=== PATIENT | male | born 2005 | race Caucasian/White ===

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

== ENCOUNTER → 2025-03-23 | Outpatient (CLI) | payer OTHER, SELFPAY ==
--- NOTE | 2025-03-23 10:22 | US_ITS ---
PROCEDURE: ABDOMEN COMPLETE 03/23/2025 REASON FOR EXAM: ELEVATED BILIRUBIN TECHNIQUE: Procedure Code: USABDC Modality: US Procedure: ABDOMEN COMPLETE COMPARISON: None. FINDINGS: Liver: Diffusely echogenic suggesting fatty infiltration. The liver measures 18.4 cm in vertical dimension in the midclavicular line. There is hepatopetal flow demonstrated in the portal venous system. Gallbladder: No stones, sludge, wall thickening or tenderness. Common bile duct: 4 mm. Pancreas: Visualized portions are sonographically unremarkable. Kidneys: The right kidney measures 12.0 x 5.9 x 5.6 cm with a 12 mm in thickness cortex. The left kidney measures 10.7 x 5.7 x 4.9 cm with a 12 mm in thickness cortex. Renal parenchymal thicknesses and echotextures are preserved. No hydronephrosis. Spleen: There is mild splenomegaly with the spleen measuring 14.4 cm in pole to pole length. Aorta: Visualized abdominal aorta is of normal size. IVC: Visualized inferior vena cava is unremarkable. Peritoneal Findings: No ascites identified. US/Abdomen Complete IMPRESSION: 1. Enlarged fatty liver. 2. Mild splenomegaly. Reading Location: [id number]
--- OUTSIDE RECORDS SUMMARY | 2025-03-23 10:23 | XMS RPT_ITS | CCD ---
Author Organization [facility] Care Team Providers Care House Rn Name Role Phone Kenneth Corley MD Primary Care Provider 1( [phone] REFERRED, SELF Referring Unavailable JUAN LUIS MCKEON Attending Unavailable KENNETH CORLEY Primary Care Unavailable KENNETH CORLEY Attending Unavailable KENNETH CORLEY Primary Care Unavailable REFERRED, SELF Referring Unavailable BALTIC, WALTER Referring Unavailable WALTER PHILLIPS Attending Unavailable Kenneth Corley Primary Care Unavailable Medications Current Medications Medication Drug Class(es) Dates Sig (Normalized) Sig (Original) naproxen 500 mg oral tablet (1 source) Nonsteroidal Anti-inflammatory Drug Start: 06-10-2020 take 1 tablet by mouth every twelve hours as needed naproxen (NAPROSYN) 500 mg tablet Take 1 tablet by mouth twice daily as needed (for pain). Take with food 14 tablet 06/10/2020 Active Problems Problem Classification Problem Date Documented Date Episodic/Chronic Administrative/social admission (5 sources) Special examination status; Translations: [Encounter for examination for participation in sport] 02-13-2018 Episodic Other connective tissue disease (5 sources) Swelling of left foot; Translations: [Other specified soft tissue disorders] 01-13-2022 Episodic Other liver diseases (1 source) Unspecified jaundice; Translations: [Unspecified jaundice] Onset: 03-15-2025 Episodic Other liver diseases (1 source) Abnormal levels of other serum enzymes; Translations: [Abnormal levels of other serum enzymes] Onset: 03-15-2025 Episodic Sprains and strains (7 sources) Strain of tendon of foot and ankle; Translations: [Strain of unspecified muscle and tendon at ankle and foot level, left foot, initial encounter] Onset: 05-26-2020 01-13-2022 Episodic Results Test Name Value Interpretation Reference Range Facility COMPREHENSIVE METABOLIC PANE Angel 03-08-2025 Albumin [Mass/Vol] 4.9 g/dL Normal 3.5-5.0 [facility] Comment on above: Order Comment: Relea se to patient->Automatic Result Comment: Veri fied By: [id number] ALP [Catalytic activity/Vol] 64 U/L Normal 40-129 [facility] Comment on above: Order Comment: Relea se to patient->Automatic Result Comment: Veri fied By: [id number] ALT [Catalytic activity/Vol] 63 U/L High <=46 [facility] Comment on above: Order Comment: Relea se to patient->Automatic Result Comment: Veri fied By: [id number] AST [Catalytic activity/Vol] 39 U/L High <=37 [facility] Comment on above: Order Comment: Relea se to patient->Automatic Result Comment: Veri fied By: [id number] BILI,TOTAL 2.0 mg/dL High <=1.0 [facility] Comment on above: Order Comment: Relea se to patient->Automatic Result Comment: Veri fied By: [id number] Calcium [Mass/Vol] 10.0 mg/dL Normal 7.6-11.0 [facility] Comment on above: Order Comment: Relea se to patient->Automatic Result Comment: Veri fied By: [id number] Chloride [Moles/Vol] 104 mmol/L Normal 96-108 [facility] Comment on above: Order Comment: Relea se to patient->Automatic Result Comment: Veri fied By: [id number] CO2 [Moles/Vol] 21.6 mmol/L Low 22.0-29.0 [facility] Comment on above: Order Comment: Relea se to patient->Automatic Result Comment: Veri fied By: [id number] Creatinine [Mass/Vol] 0.79 mg/dL Normal 0.70-1.20 [facility] Comment on above: Order Comment: Relea se to patient->Automatic Result Comment: Veri fied By: [id number] GFR/1.73 sq M.predicted among non-blacks MDRD (S/P/Bld) [Vol rate/Area] mL/min/{1.73_m2} Normal >=60 [facility] Comment on above: Order Comment: Relea se to patient->Automatic Glucose [Mass/Vol] 91 mg/dL Normal 70-99 [facility] Comment on above: Order Comment: Relea se to patient->Automatic Result Comment: Yariel mata for Diagnosis of Diabetes: Fasting Specimen (no caloric intake for at least 8 hours): <100 mg/dL Normal 100-125 mg/dL Increased risk for Diabetes >125 mg/dL Diagnostic for Diabetes Random Glucose (any time of day without regard to last meal): > or = 200 mg/dL plus Classic Symptoms of Diabetes Verified By: [id number] Potassium [Moles/Vol] 4.3 mmol/L Normal 3.3-5.1 [facility] Comment on above: Order Comment: Relea se to patient->Automatic Result Comment: Veri fied By: [id number] Protein [Mass/Vol] 7.6 g/dL Normal 5.9-8.4 [facility] Comment on above: Order Comment: Relea se to patient->Automatic Result Comment: Veri fied By: [id number] Sodium [Moles/Vol] 140 mmol/L Normal 133-145 [facility] Comment on above: Order Comment: Relea se to patient->Automatic Result Comment: Veri fied By: [id number] Urea nitrogen [Mass/Vol] 8 mg/dL Normal 4-19 [facility] Comment on above: Order Comment: Relea se to patient->Automatic Result Comment: Veri fied By: [id number] HEMOGLOBIN A1Con 03-08-2025 HbA1c (Bld) [Mass fraction] 5.0 % Normal <=5.6 [facility] Comment on above: Order Comment: Relea se to patient->Automatic Result Comment: Refe rence Interval: <5.7% 5.7-6.4% Prediabetes > or = 6.5% Diabetes Targets for diabetes management: Type I <7.5% Type II <7.0% LIPID PANELon 03-08-2025 Cholesterol [Mass/Vol] 136 mg/dL Normal <=169 [facility] Comment on above: Order Comment: Relea se to patient->Automatic Result Comment: Acce ptable (mg/dL): <170 Borderline-High (mg/dL): 170-199 High (mg/dL): > or = 200 Reference: Recommendations of the [place] [employer] (Pediatrics, Jun 2011, 128 (Supplement 5) Z551-L066; DOI: 10.1542/peds.2008-7C). Verified By: [id number] Cholesterol in LDL [Mass/Vol] 68 mg/dL Normal <=109 [facility] Comment on above: Order Comment: Relea se to patient->Automatic Result Comment: Veri fied By: [id number] HDL Chol 51 MG/DL Normal [facility] Comment on above: Order Comment: Relea se to patient->Automatic Result Comment: Low (mg/dL): <40 Borderline-Low (mg/dL): 40-45 Acceptable (mg/dL): >45 Verified By: [id number] Non-HDL Cholesterol 85 mg/dL Normal <=119 [facility] Comment on above: Order Comment: Relea se to patient->Automatic Result Comment: Veri fied By: [id number] Triglyceride [Mass/Vol] 84 mg/dL Normal <=89 [facility] Comment on above: Order Comment: Relea se to patient->Automatic Result Comment: Acce ptable (mg/dL): <90 Borderline-High (mg/dL): 90-129 High (mg/dL): > or = 130 Verified By: [id number] Progress Noteon 03-08-2025 [employer] Authentication Interface Message Text Kamryn Antunez is a 19 y.o. male patient. PHQ9 Assessment With Score Performed by: Juan Luis Mckeon MD Authorized by: Juan Luis Mckeon MD PHQ-9 See PHQ9 Flowsheet Feeling down, depressed, irritable or hopeless: (Patient-Rptd) Not at all Little interest or pleasure in doing things: (Patient-Rptd) Not at all Trouble falling or staying sleep, or sleeping too much: (Patient-Rptd) Not at all Poor appetite, weight loss, or overeating: (Patient-Rptd) Not at all Feeling tired or having little energy: (Patient-Rptd) Not at all Feeling bad about yourself - or feeling that you are a failure, or have let yourself or your family down: (Patient-Rptd) Not at all Trouble concentrating on things, like school work, reading or watching TV: (Patient-Rptd) Not at all Moving or speaking so slowly that other people could have noticed. Or the opposite - being so fidgety or restless that you were moving around a lot more than usual: (Patient-Rptd) Not at all Thoughts that you would be better off , or of hurting yourself in some way: (Patient-Rptd) Not at all In the past year have you felt depressed or sad most days, even if you felt OK sometimes?: (Patient-Rptd) No If you are experiencing any of the problems on this form, how difficult have these problems made it for you to do your work, take care of things at home or get along with other people?: (Patient-Rptd) Not difficult at all Has there been a time in the past month when you have had serious thoughts about ending your life?: (Patient-Rptd) No Have you ever, in your whole life, tried to kill yourself or made a suicide attempt?: (Patient-Rptd) No PHQ-9 Total Score: (Patient-Rptd) 0 Health Risk Assessment - CRAFFT Authorized by: Juan Luis Mckeon MD CRAFFT Results: 1. Drink more than a few sips of beer, wine, or any drink containing alcohol? Put 0 if none.: (Patient-Rptd) 0 2. Use any marijuana (cannabis, weed, oil, wax, or hash by smoking, vaping, dabbing, or in edibles) or synthetic marijuana (like K2, or Spice)? Put 0 if none.: (Patient-Rptd) 0 3. Use anything else to get high (like other illegal drugs, pills, prescription or ssjj-kmi-[id number] medications, and things that you sniff, thomas, vape, or inject)? Put 0 if none.: (Patient-Rptd) 0 4. Use a vaping device* containing nicotine and/or flavors, or use any tobacco products^? Put 0 if none.: (Patient-Rptd) 0 5. Have you ever ridden in a CAR driven by someone (including yourself) who was high or had been using alcohol or drugs?: (Patient-Rptd) No Total Score: : (Patient-Rptd) 0 Electronically signed by: Juan Luis Mckeon MD Intermediate [facility] [employer] Authentication Interface Message Text Patient ID: Kamryn Antunez is a 19 y.o. male. His chief complaint(s) include: 19 YEAR WELL CHILD Assessment 1. Routine general medical examination at a health care facility 2. Abnormal weight gain 3. Dyslexia, developmental 4. Dysgraphia Plan Kamryn was seen today for 19 year well child. Diagnoses and associated orders for this visit: Routine general medical examination at a health care facility - PHQ9 Assessment With Score - Health Risk Assessment - CRAFFT Abnormal weight gain - Venipuncture - Hemoglobin A1c - Lipid panel - Comprehensive metabolic panel ([facility]inic [facility]) Dyslexia, developmental Dysgraphia Learning disabilities (dyslexia and dysgraphia) with associated academic accommodations Kamryn has managed dyslexia and dysgraphia with academic accommodations since age [age], continuing into college with extended time, small group testing, read aloud, one-on-one tutoring, lecture recording, and audiobooks. He seeks a single dorm room to aid concentration and reduce anxiety. Reviewed and complete accommodation paperwork for a single dorm room. Scanned and returned supporting documents through [employer]. Return in about 1 year (around 03/08/2026) for well check. Safety and development were discussed. Growth charts reviewed. Counseled on healthy eating habits and physical activity recommendations. Fasting obesity screening labs obtained today; review of 2021 labs showed elevated AST, elevated bilirubin. Subjective History of Present Illness Kamryn Antunez is a 19 year old male with anxiety, inattention, dyslexia, and dysgraphia who presents for a well visit and to obtain documentation for a single dorm room accommodation at [facility]. He is accompanied by his mother. He reports that he is seeking documentation to support his request for a single dorm room at college due to difficulties concentrating with a roommate present. He reports that having a roommate increases his anxiety and makes it harder for him to focus on his studies, especially since he had more individualized support in high school. He has a history of anxiety, dyslexia, and dysgraphia, and has been on an Individualized Education Program (IEP) since age [age]. In high school, he received accommodations such as one-on-one tutoring, tests read aloud, and a quiet environment, which helped manage his symptoms. At college, he continues to receive accommodations including extended time, small group testing, and access to audiobooks, recorded lectures etc. He experiences anxiety symptoms such as panic and difficulty sleeping, particularly related to academic performance and test preparation. These symptoms were particularly pronounced in his anatomy class last year, which he struggled with due to the heavy coursework and memorization required. He is currently not on any medication for anxiety or attention issues and has not engaged in behavioral therapy. His social history includes going into his sophomore year at [employer], where he is considering joining a fraternity and plans to become more involved on campus. He reports a poor diet at college, often skipping breakfast and having irregular meal times, which he attributes to his class schedule. He acknowledges consuming larger portions and snacking more frequently. He drinks water, juice, pop. No current symptoms of increased thirst, increased urination, or gastrointestinal issues. He is accompanied by his mother. Independent history obtained from mother. 19 YEAR WELL CHILD Home: Kamryn lives apart from family (in the dorms at college, home over the summer). Eating: Kamryn does not eat regular meals including fruits and vegetables and does not drink non-sweetened liquids. Activities & Sports: Kamryn has friends. Kamryn performs less than 1 hour of physical activity daily. Drugs: Kamryn does not use tobacco, does not use drugs, does not use alcohol and does not vape. Safety: Kamryn has a violence free home, has peer relationships free from violence and uses seat belt. Kamryn does not use phone/text while driving and has no safety risk identified. Sex: The patient has never had a sexual partner. The patient is interested in females. Suicidality: Kamryn has no mental health risk identified. (worries about exams, but not involving other daily activities). Output Urine and Stool Pattern: Urine and Stool Pattern: Normal stool pattern, normal urine pattern. Sleep Sleeping Difficulty: no difficulty sleeping Hours of sleep at a time: 9 Teen Anticipatory Guidance The following anticipatory guidance was reviewed during the visit: Nutrition: limit junk food/fast food and soft drinks. Safety: home safety and date violence. Social: avoid or limit screen time. Health: age appropriate dental care, age appropriate sleep habits, self testicular exam, don't use tobacco/ alcohol/ drugs/ diet pills/ inhalants, puberty/sexual development/c (more content not included)... Normal [facility] Progress Noteon 01-23-2025 [employer]uler Authentication Interface Message Text Patient ID: Kamryn Antunez is a 19 y.o. male. His chief complaint(s) include: Ear Pain Assessment 1. Left acute suppurative otitis media Plan Kamryn was seen today for ear pain. Diagnoses and associated orders for this visit: Left acute suppurative otitis media - amoxicillin (AMOXIL) 875 MG tablet; Take 1 Tablet (875 mg) by mouth 2 times daily for 5 days Follow Up Return for Well Visit and as needed. Left ear infection Likely secondary to congestion from a cold virus causing pressure and ringing. - Prescribed amoxicillin to address infection and alleviate symptoms. Acute sinusitis Possible acute sinusitis suggested by congestion and cough, may contribute to ear infection. - Discussed that congestion and cough may persist for another week Subjective History of Present Illness The patient presents with headache, ear ringing, and sore throat. Headache and ringing in the left ear have been present since or Tuesday, with symptoms worsening over time. Has congestion and pressure behind nose and eyes. A sore throat began today. There is a slight cough, but no respiratory distress. Sudafed has been taken with some symptom relief. He is unaccompanied. Primary Care Review of Systems Objective Vital Signs 01/23/25 1331 Temp: 36.1 C (97 F) TempSrc: Temporal Weight: (!) 111.8 kg Height: 182.2 cm Body mass index is 33.68 kg/m . Physical Exam Constitutional: He appears well. He is active. No distress. HENT: Head: Atraumatic. Ears: Right Ear: Tympanic membrane normal. Left Ear: Tympanic membrane is erythematous and bulging. A purulent effusion is present. Nose: No nasal discharge. Mouth/Throat: Mucous membranes are moist. No pharynx erythema. Cardiovascular: Normal rate and regular rhythm. Heart murmur not heard. Pulmonary/Chest: Effort normal and breath sounds normal. There is normal air entry. He has no wheezes. He has no rales. Neurological: He is alert. Normal [facility] Basophil percentageon 2021 Bilirubin [Mass/Vol] 2.60 mg/dL 0.20-1.00 [facility] Work Phone: Comment on above: For patients on eltr ombopag therapy, use of Dimension [place] TBIL is not recommended. Chloride [Moles/Vol] 104 mmol/L 98-107 [facility] Work Phone: Cholesterol [Mass/Vol] 111 mg/dL <200 [facility] Work Phone: Comment on above: <200 mg/dL Desirable 200-240 mg/dL Borderline >240 mg/dL High Risk Glucose [Mass/Vol] 93 mg/dL 74-106 [facility] Work Phone: Potassium [Moles/Vol] 4.8 mmol/L 3.5-5.1 [facility] Work Phone: Protein [Mass/Vol] 7.9 g/dL 6.4-8.2 [facility] Work Phone: Sodium [Moles/Vol] 140 mmol/L 136-145 [facility] Work Phone: Triglyceride [Mass/Vol] 44 mg/dL <199 [facility] Work Phone: Comment on above: The drugs N-Acetylcy steine and Metamizole may falsely depress this assay.Serum Triglycerides Reference Interval Normal <150 mg/dL Borderline high 150 - 199 mg/dL High 200 - 499 mg/dL Very High > or = 500 mg/dL Laboratory - Chemistry and C hemistry - challengeon 04-03-2022 ALP [Catalytic activity/Vol] 85 U/L 52-171 [facility] Work Phone: ALT [Catalytic activity/Vol] 42 U/L 16-61 [facility] Work Phone: CO2 [Moles/Vol] 30.0 mmol/L 21.0-32.0 [facility] Work Phone: Globulin (S) [Mass/Vol] 3.7 g/dL 2.2-4.2 [facility] Work Phone: Urea nitrogen/Creatinine [Mass ratio] 8.3 mg/mg 10-20 [facility] Work Phone: No Panel Informationon 04-03 Estimated GFR (MDRD) [facility] Work Phone: Comment on above: Test not performedAf rican [place] GFR Calc Estimated GFR (MDRD) Non-Af [facility] Work Phone: Comment on above: Test not performedNo n- GFR Calc Serum or plasma albumin janusz urement (mass/volume)on 04-03-2022 Albumin [Mass/Vol] 4.2 g/dL 3.2-5.0 [facility] Work Phone: Serum or plasma albumin/glob ulin mass ratioon 04-03-2022 Albumin/Globulin [Mass ratio] 1.1 {ratio} 0.9-2.4 [facility] Work Phone: Serum or plasma calcium janusz urement (mass/volume)on 04-03-2022 Calcium [Mass/Vol] 9.7 mg/dL 8.5-10.1 [facility] Work Phone: Serum or plasma cholesterol in HDL measurement (mass/volume)on 04-03-2022 Cholesterol in HDL [Mass/Vol] 56 mg/dL >40 [facility] Work Phone: Comment on above: The drugs N-Acetylcy steine and Metamizole may falsely depress this assay. Reference Range HDL <40 mg/dL Low HDL Cholesterol HDL >or= 60 mg/dL High HDL Cholesterol Serum or plasma cholesterol in VLDL measurement (mass/volume)on 04-03-2022 Cholesterol in VLDL [Mass/Vol] 9 mg/dL 5-40 [facility] Work Phone: Serum or plasma creatinine m easurement (mass/volume)on 04-03-2022 Creatinine [Mass/Vol] 0.97 mg/dL 0.70-1.30 [facility] Work Phone: Comment on above: The validity of the calculated GFR & GFRAA in patients over 70 years has not been determined. Clinical correlation is essential. Serum or plasma low density lipoprotein (LDL) cholesterol measurement (mass/volume)on 04-03-2022 Cholesterol in LDL [Mass/Vol] 46 mg/dL 0-130 [facility] Work Phone: Serum or plasma urea nitroge n measurement (mass/volume)on 04-03-2022 Urea nitrogen [Mass/Vol] 8 mg/dL 7-18 [facility] Work Phone: Thin prep Papanicolaou smear with manual screeningon 04-03-2022 Thin prep Papanicolaou smear with manual screening 42 U/L 15-37 [facility] Work Phone: Thin prep Papanicolaou smear with manual screening 6 5-15 [facility] Work Phone: CNOVon 01-16-2021 CNOV Office Visit (SPRTST ) KAMRYN ANTUNEZ ([id number]) 5 M Date Time Provider Department 01/16/21 10:10 AM KAVITA LITTLEJOHN During your visit today, we recorded the following information about you: Kavita Littlejohn MD 01/16/2021 10:41 AM Signed DATE OF PROCEDURE:?June 11, 2020 OPERATION: 1.?Left?knee arthroscopically-catalino tamiko anterior cruciate ligament reconstruction with bone-patellar tendon-bone autograft 2. Diagnostic arthroscopy. 3. Examination under anesthesia. 4.??Left?knee medial meniscus root repair 5.??Left?knee?partial lateral meniscectomy REF: [employer] Interval history: Kamryn Antunez returns today status post left knee surgery. Chief complaint is left knee resolved pain. Doing great . Review of Systems: CV: No chest pain Pulm: No short of breath HEENT: No head ache General: no fevers, chills, nausea/vomiting, malaise Physical Examination: This is a well appearing, well nourished patient in no acute distress. Head is normocephalic and atraumatic. White sclera and pink conjunctiva. Mucous membranes are moist. Breathes easily and has normal chest wall excursion. Affect is normal. Left knee: negative susan's Range of motion: Flexion is ful, extension is full . Effusion: none +. Incisions: healed . No infection. Imaging: none Impression: Kamryn Hallmanley is a 15 year old male, who is 7 months status post left knee ACLR, MM root repair and partial lateral meniscectomy. Doing great . Plan: 1. return to clinic as necessary 2. Cleared for all activities Kavita Littlejohn MD Referring Provider: KENNETH CORLEY [[id number]] Allergies As of Date: 01/16/2021 (No Known Allergies) Date Reviewed: 01/16/2021 Reviewed by: Kayla Long Ma - Fully Assessed Reason for Visit: Post Op [174] Established Patient [175] Follow Up [171] Primary Visit Diagnosis:S/P right knee ACL reconstruction with BTB autograft, medial meniscus root repair, partial lateral meniscectomy [Z98.890] Other Visit Diagnosis:[employer] [Y93.64] Prescriptions as of 01/16/2021 - naproxen (NAPROSYN) 500 mg tablet Take 1 tablet by mouth twice daily as needed (for pain). Take with food Problem List As Of Date 01/16/2021 Noted Resolved Left anterior cruciate ligament tear [S83.512A] 05/26/2020 S/P right knee ACL reconstruction with BTB auto*06/19/2020 Encounter Status:Closed by KAVITA LITTLEJOHN on 01/16/21 [facility] CNCOon 12-12-2020 CNCO Letter Text Normal [facility] CNOVon 12-12-2020 CNOV Office Visit (SPRTST ) KAMRYN ANTNUEZ ([id number]) 5 M Date Time Provider Department 12/12/20 8:30 AM KAVITA LITTLEJOHN During your visit today, we recorded the following information about you: Edgar Tipton MD 12/14/2020 4:52 PM Signed DATE OF PROCEDURE:?June 11, 2020 OPERATION: 1.?Left?knee arthroscopically-catalino morrison anterior cruciate ligament reconstruction with bone-patellar tendon-bone autograft 2. Diagnostic arthroscopy. 3. Examination under anesthesia. 4.??Left?knee medial meniscus root repair 5.??Left?knee?partial lateral meniscectomy REF: [employer] Doing very well. No significant pain. He has been working through some jogging. Physical Examination: This is a well appearing, well nourished male in no acute distress. His head is normocephalic and atraumatic. He has white sclera and pink conjunctiva. Mucous membranes are moist. He breathes easily and has normal chest wall excursion. He has a normal affect. Negative Susan's and pivot shift on exam. Minor pain with palpation over the patellar tendon. He has full range of motion. Good quadriceps contractility. Single leg hop on the left demonstrates he is still a little stiff legged. Currently just past 6 months status post left knee ACL reconstruction medial meniscus root repair and partial lateral meniscectomy. He is ok to participate in non-game sports activities. RTC in 1 month. ALLERGIES No Known Allergies No past medical history on file. PAST SURGICAL HISTORY Procedure Laterality Date - ADENOIDECTOMY HX - EAR TUBES HX x 2 Current Outpatient Medications on File Prior to Visit Medication Sig - naproxen (NAPROSYN) 500 mg tablet Take 1 tablet by mouth twice daily as needed (for pain). Take with food (Patient not taking: Reported on 10/31/2020 ) No current facility-administered medications on file prior to visit. FAMILY HISTORY Problem Relation Age of Onset - Asthma Mother - Diabetes Father - Hypertension Father - Asthma Brother Review of Symptoms: Cardiac: No chest pain Pulmonary: No trouble breathing Constitutional: No fevers, chills GI: No current GI upset Musculoskeletal: As above MD Kavita Russell MD FAOA Orthopaedic Surgery and Sports Medicine [facility] Sports Medicine explosive man [facility] Warehouse Operations Manager, Orthopaedic Sports Medicine Fellowship [facility] Orthopaedic and Rheumatologic [place] Kavita Littlejohn MD 12/14/2020 4:52 PM Signed Attending Attestation: I have seen and evaluated this patient. I agree with the impression and plan of care as outlined in the Resident's note. Single leg hop is not fantastic. A bit stiff legged. MD PEMA Harley Orthopaedic Surgery and Sports Medicine [facility] Sports Medicine explosive man [facility] Warehouse Operations Manager, Orthopaedic Sports Medicine Fellowship [facility] Orthopaedic and Rheumatologic [place] Referring Provider: KENNETH CORLEY [[id number]] Allergies As of Date: 12/12/2020 (No Known Allergies) Date Reviewed: 12/12/2020 Reviewed by: Edgar Tipton MD - Fully Assessed Reason for Visit: Post-Op Visit [1236] Established Patient [175] Post Op [174] Primary Visit Diagnosis:S/P right knee ACL reconstruction with BTB autograft, medial meniscus root repair, partial lateral meniscectomy [Z98.890] Prescriptions as of 12/12/2020 Sig: NAPROXEN 500 MG TABLET Take 1 tablet by mouth twice * Patient not taking: Reported on 10/31/2020 Problem List As Of Date 12/12/2020 Noted Resolved Left anterior cruciate ligament tear [S83.512A] 05/26/2020 S/P right knee ACL reconstruction with BTB auto*06/19/2020 Disposition: Return in about 5 weeks (around 01/16/2021). Follow-up and Disposition History Recorded Encounter Status:Closed by KAVITA LITTLEJOHN on 12/14/20 Normal [facility] CNOVon 10-31-2020 CNOV Office Visit (SPRTST ) KAMRYN ANTUNEZ ([id number]) 5 M Date Time Provider Department 10/31/20 8:30 AM KAVITA LITTLEJOHN During your visit today, we recorded the following information about you: Kavita Littlejohn MD 10/31/2020 8:53 AM Signed DATE OF PROCEDURE:?June 11, 2020 OPERATION: 1.?Left?knee arthroscopically-catalinojunior morrison anterior cruciate ligament reconstruction with bone-patellar tendon-bone autograft 2. Diagnostic arthroscopy. 3. Examination under anesthesia. 4.??Left?knee medial meniscus root repair 5.??Left?knee?partial lateral meniscectomy REF: [employer] Doing very well. No significant pain. He has been working through some jogging. Physical Examination: This is a well appearing, well nourished male in no acute distress. His head is normocephalic and atraumatic. He has white sclera and pink conjunctiva. Mucous membranes are moist. He breathes easily and has normal chest wall excursion. He has a normal affect. Negative Susan's and pivot shift on exam. Minor pain with palpation over the patellar tendon. He has full range of motion. Good quadriceps contractility. Currently approaching 5 months status post left knee ACL reconstruction medial meniscus root repair and partial lateral meniscectomy. Doing well. We talked to him about progressing with his return to play program. He is okay to start doing some flat ground throwing and progress that to long toss and level ground pitching. ALLERGIES No Known Allergies No past medical history on file. PAST SURGICAL HISTORY Procedure Laterality Date - ADENOIDECTOMY HX - EAR TUBES HX x 2 Current Outpatient Medications on File Prior to Visit Medication Sig - naproxen (NAPROSYN) 500 mg tablet Take 1 tablet by mouth twice daily as needed (for pain). Take with food (Patient not taking: Reported on 10/31/2020 ) No current facility-administered medications on file prior to visit. FAMILY HISTORY Problem Relation Age of Onset - Asthma Mother - Diabetes Father - Hypertension Father - Asthma Brother Review of Symptoms: Cardiac: No chest pain Pulmonary: No trouble breathing Constitutional: No fevers, chills GI: No current GI upset Musculoskeletal: As above Kavita Littlejohn MD FAOA Orthopaedic Surgery and Sports Medicine [facility] Sports Medicine explosive man [facility] Warehouse Operations Manager, Orthopaedic Sports Medicine Fellowship [facility] Orthopaedic and Rheumatologic [place] Referring Provider: KENNETH CORLEY [[id number]] Allergies As of Date: 10/31/2020 (No Known Allergies) Date Reviewed: 10/31/2020 Reviewed by: Kayla Long Ma - Fully Assessed Reason for Visit: Post Op [174] Established Patient [175] Follow Up [171] Primary Visit Diagnosis:S/P right knee ACL reconstruction with BTB autograft, medial meniscus root repair, partial lateral meniscectomy [Z98.890] Prescriptions as of 10/31/2020 Sig: NAPROXEN 500 MG TABLET Take 1 tablet by mouth twice * Patient not taking: Reported on 10/31/2020 Problem List As Of Date 10/31/2020 Noted Resolved Left anterior cruciate ligament tear [S83.512A] 05/26/2020 S/P right knee ACL reconstruction with BTB auto*06/19/2020 Disposition: Return in about 6 weeks (around 12/12/2020). Follow-up and Disposition History Recorded Letter Text Encounter Status:Closed by KAVITA LITTLEJOHN MD on 10/31/20 [facility] CNCOon 09-26-2020 CNCO Letter Text [facility] CNOVon 09-26-2020 CNOV Office Visit (SPRTST ) KAMRYN ANTUNEZ ([id number]) 5 M Date Time Provider Department 09/26/20 8:30 AM KAVITA LITTLEJOHN During your visit today, we recorded the following information about you: Kavita Littlejohn MD 09/26/2020 8:41 AM Signed DATE OF PROCEDURE:?June 11, 2020 OPERATION: 1.?Left?knee arthroscopically-catalino tamiko anterior cruciate ligament reconstruction with bone-patellar tendon-bone autograft 2. Diagnostic arthroscopy. 3. Examination under anesthesia. 4.??Left?knee medial meniscus root repair 5.??Left?knee?partial lateral meniscectomy REF: [employer] Interval history: Kamryn Antunez returns today status post left knee surgery. Chief complaint is left knee resolved pain.. Doing very well. Review of Systems: CV: No chest pain Pulm: No short of breath HEENT: No head ache General: no fevers, chills, nausea/vomiting, malaise Physical Examination: This is a well appearing, well nourished patient in no acute distress. Head is normocephalic and atraumatic. White sclera and pink conjunctiva. Mucous membranes are moist. Breathes easily and has normal chest wall excursion. Affect is normal. Left knee: Excursion on Susan's but a negative endpoint. Range of motion: Flexion is symmetric, extension is symmetric. Effusion: None +. Incisions: Healed. No infection. Imaging: None Impression: Kamryn Antunez is a 15 year old male, who is 3-1/2 months status post left knee ACL reconstruction, medial meniscus root repair and partial lateral meniscectomy. Doing well. Plan: 1. Continue with physical therapy 2. Okay to discontinue the surface grinding machine hand brace for everyday use 3. Return to clinic in 6 weeks Kavita Littlejohn MD [facility] Orthopaedic Surgery and Sports Medicine [facility] Sports Medicine explosive man [facility] Warehouse Operations Manager, Orthopaedic Sports Medicine Fellowship [facility] Orthopaedic and Rheumatologic [place] Referring Provider: KENNETH CORLEY [[id number]] Allergies As of Date: 09/26/2020 (No Known Allergies) Date Reviewed: 08/28/2020 Reviewed by: Cheryl Renteria Ma - Fully Assessed Reason for Visit: Post-Op Visit [1236] Established Patient [175] Post Op [174] Primary Visit Diagnosis:S/P right knee ACL reconstruction with BTB autograft, medial meniscus root repair, partial lateral meniscectomy [Z98.890] Prescriptions as of 09/26/2020 Sig: NAPROXEN 500 MG TABLET Take 1 tablet by mouth twice * Problem List As Of Date 09/26/2020 Noted Resolved Left anterior cruciate ligament tear [S83.512A] 05/26/2020 S/P right knee ACL reconstruction with BTB auto*06/19/2020 Disposition: Return in about 6 weeks (around 11/07/2020). Follow-up and Disposition History Recorded Letter Text Encounter Status:Closed by KAVITA LITTLEJOHN MD on 09/26/20 [facility] CNCOon 08-28-2020 CNCO Letter Text [facility] CNOVon 08-28-2020 CNOV Office Visit (SPRTST ) KAMRYN ANTUNEZ ([id number]) 5 M Date Time Provider Department 08/28/20 8:30 AM KAVITA LITTLEJOHN SPRMARIA DT During your visit today, we recorded the following information about you: Kavita Littlejohn MD 08/28/2020 8:51 AM Signed DATE OF PROCEDURE:?June 11, 2020 OPERATION: 1.?Left?knee arthroscopically-catalino tamiko anterior cruciate ligament reconstruction with bone-patellar tendon-bone autograft 2. Diagnostic arthroscopy. 3. Examination under anesthesia. 4.??Left?knee medial meniscus root repair 5.??Left?knee?partial lateral meniscectomy REF: [employer] Interval history: Kamryn Antunez returns today status post left knee surgery. Chief complaint is resolved knee pain.. Doing great. Review of Systems: CV: No chest pain Pulm: No short of breath HEENT: No head ache General: no fevers, chills, nausea/vomiting, malaise Physical Examination: This is a well appearing, well nourished patient in no acute distress. Head is normocephalic and atraumatic. White sclera and pink conjunctiva. Mucous membranes are moist. Breathes easily and has normal chest wall excursion. Affect is normal. knee: solid endpoint on Susan's Range of motion: Flexion is full, extension is full . Effusion: none +. Incisions: healed . No infection. Imaging: none Impression: Kamryn Antunez is a 15 year old male, who is 3 months status post ACLR+ MM root repair + PLM. He is doing well, progresses. At this point, he is cleared to transition to Phase II on rehabilitation. Plan: 1. PT -as per miller protocol he is not ready for jogging or plyometric activities. We should hold off on that until he is at two months post surgery 2. return to clinic in 1 month By signing my name below, I, Li Day Ms, attest that this documentation has been prepared under the direction and in the presence of Dr. Littlejohn Electronically signed, Li Day Ms, Medical Student August 28, 2020 8:34 AM Referring Provider: KAVITA LITTLEJOHN [[id number]] Allergies As of Date: 08/28/2020 (No Known Allergies) Date Reviewed: 08/28/2020 Reviewed by: Cheryl Renteria Ma - Fully Assessed Reason for Visit: Post-Op Visit [1236] Established Patient [175] Post Op [174] Primary Visit Diagnosis:S/P right knee ACL reconstruction with BTB autograft, medial meniscus root repair, partial lateral meniscectomy [Z98.890] Prescriptions as of 08/28/2020 Sig: NAPROXEN 500 MG TABLET Take 1 tablet by mouth twice * Problem List As Of Date 08/28/2020 Noted Resolved Left anterior cruciate ligament tear [S83.512A] 05/26/2020 S/P right knee ACL reconstruction with BTB auto*06/19/2020 Disposition: Return in about 4 weeks (around 09/25/2020). Follow-up and Disposition History Recorded Encounter Status:Closed by KAVITA LITTLEJOHN MD on 08/28/20 Normal [facility] XR Knee - left AP and Latera angel 06-19-2020 IMPRESSION: Expected postsurgical changes of ACL reconstruction. Health Insurance Adjuster: KRISTEN Transcribe Date/Time: Jun 19 2020 2:07P Dictated by : VIVIAN ZAPATA DO This examination was interpreted and the report reviewed and electronically signed by: ANH SALINAS MD on Jun 19 2020 2:21PM [facility] DIVISION OF RADIOLOGY * * *Final Report* * * DATE OF EXAM: Jun 19 2020 2:05PM STX 5206 - XR KNEE 2V AP/LAT LT / PROCEDURE REASON: Rupture of anterior cruciate ligament of left knee, subsequent encounter * * * * Physician Interpretation * * * * EXAMINATION: XR KNEE 2V AP/LAT LT HISTORY: FOLLOW UP, SURGERY 06/11/20 Rupture of anterior cruciate ligament of left knee, subsequent encounter . TECHNIQUE: XR KNEE 2V AP/LAT LT Laterality: LEFT Number of different views (projections): 2 M: XB_1 COMPARISON: Outside left knee MRI 05/09/2020, outside left knee radiographs 04/24/2020 RESULT: Postsurgical changes of ACL reconstruction including threaded anchor in the proximal tibia and femoral Endobutton. Large joint effusion. Anterior knee soft tissue swelling and patellar tendon edema. DIVISION OF RADIOLOGY Provider, [facility] - 06/19/2020 * * *Final Report* * * DATE OF EXAM: Jun 19 2020 2:05PM STX 5206 - XR KNEE 2V AP/LAT LT / PROCEDURE REASON: Rupture of anterior cruciate ligament of left knee, subsequent encounter * * * * Physician Interpretation * * * * EXAMINATION: XR KNEE 2V AP/LAT LT HISTORY: FOLLOW UP, SURGERY 06/11/20 Rupture of anterior cruciate ligament of left knee, subsequent encounter . TECHNIQUE: XR KNEE 2V AP/LAT LT Laterality: LEFT Number of different views (projections): 2 M: XB_1 COMPARISON: Outside left knee MRI 05/09/2020, outside left knee radiographs 04/24/2020 RESULT: Postsurgical changes of ACL reconstruction including threaded anchor in the proximal tibia and femoral Endobutton. Large joint effusion. Anterior knee soft tissue swelling and patellar tendon edema. IMPRESSION IMPRESSION: Expected postsurgical changes of ACL reconstruction. Health Insurance Adjuster: PSCB Transcribe Date/Time: Jun 19 2020 2:07P Dictated by : VIVIAN ZAPATA DO This examination was interpreted and the report reviewed and electronically signed by: ANH SALINAS MD on Jun 19 2020 2:21PM EST [facility] Radiology Study observation (narrative) [facility] XR Knee - left AP and Latera lOrdered By: [facility] Provider on 06-19-2020 [facility] ANES POSTPROC EVALon 020 ANES POSTPROC EVAL HNO ID: [id number] Author: Kirill Lay Service: ? Author Type: Anesthesiologist Type: Anesthesia Postprocedure Evaluation Filed: 06/11/2020 12:50 PM Note Text: POST ANESTHESIA EVALUATION NOTE : 2005 Procedure Summary Date: 06/11/20 Room / Location: [place] [address] / OR Anesthesia Start: 907 Anesthesia Stop: 1134 Procedures: ARTHROSCOPY KNEE ANTERIOR CRUCIATE LIGAMENT REPAIR AUGMENTATION OR RECONSTRUCTION (Left Knee) ARTHROSCOPY KNEE MENISCECTOMY LATERAL (Left Knee) Diagnosis: Rupture of anterior cruciate ligament of left knee, subsequent encounter (Rupture of anterior cruciate ligament of left knee, subsequent encounter [S83.512D]) Surgeons: Kavita Littlejohn Responsible Provider: Kirill Lay Anesthesia Type: general ASA Status: 1 Anesthesia Type: general Last vitals Vitals Value Taken Time BP 162/98 06/11/20 1230 Temp 36.5 ?C (97.7 ?F) 06/11/20 1133 Pulse 89 06/11/20 1233 Resp 17 06/11/20 1233 SpO2 96 % 06/11/20 1233 Vitals shown include unvalidated device data. Post Anesthesia Patient Status Patient Evaluation: PACU. PACU/ICU Patient Condition: stable. Anticipated Disposition: phase 2 then home. Neurological Status: aware and responsive. Pulmonary Status: breathing comfortably on room air Airway Control: returned to baseline unsupported. Cardiovascular Status: stable. Pain Management: clinically adequate - multimodal analgesia pain management approach Postoperative Hydration: acceptable. Intraoperative Events: no significant anesthesia events Post Operative Nausea/Vomiting Status: Anesthetic Observations: no significant anesthetic observations Recommendation: continue current plan of care. SIGNATURE: Kirill Lay MD PATIENT NAME: Kamryn Antunez DATE: June 11, 2020 TIME: 12:50 PM CSN: [id number] [facility] ANES PRE-OPon 06-11-2020 ANES PRE-OP HNO ID: [id number] Author: Kirill Lay Service: ? Author Type: Anesthesiologist Type: Anesthesia Preprocedure Evaluation Filed: 06/11/2020 8:00 AM Note Text: ANESTHESIOLOGY DAY OF SURGERY NOTE : 2005 Procedure(s) (LRB): ARTHROSCOPY KNEE ANTERIOR CRUCIATE LIGAMENT REPAIR AUGMENTATION OR RECONSTRUCTION (Left) ARTHROSCOPY KNEE MENISCECTOMY MEDIAL OR LATERAL (Left) ARTHROSCOPY, KNEE MENISCUS REPAIR MEDIAL OR LATERAL (Left) Surgeon(s): Kavita Littlejohn Estimated body mass index is 29.99 kg/m? as calculated from the following: Height as of this encounter: 180.3 cm (5' 11). Weight as of this encounter: 97.5 kg (215 lb). Most recent hematocrit and potassium results: No results found for this basename: HCT,HEMATOCRIT,K,POTAS SIUM Relevant Problems No relevant active problems I - PHYSICAL EVALUATION AIRWAY Patient intubated: No. Mallampati: II. TM distance: >3 FB. Neck ROM: full ROM without neurological symptoms. Mouth opening: adequate. Short neck: no. Thick neck: no DENTAL Dental findings: teeth intact. Additional exam findings: no II - ANESTHESIA PLAN ASA Score: 1 Anesthetic Plan: general Airway type: LMA Anesthetic plan additional comments: Heart sounds S1 and S2 heard Lungs clear to auscultation. NPO Status: adequate Monitoring plan: Standard ASA. Postoperative analgesic plan: parenteral or oral opioids and multimodal analgesia. Anesthetic Risks, Benefits, Alternatives, Personnel Discussed. Consent obtained from: patient. Patient / Surrogate agrees to blood products: yes DNR status not reviewed with patient and/or family prior to surgery. Significant changes in the patient condition since the History and Physical, not otherwise documented in primary service progress note: no. Potential Anesthesia issues that may suggest increased risk of complications or contraindication to planned procedure: none. Vitals Value Taken Time BP 159/90 06/11/20 0747 Pulse 74 06/11/20 0747 Resp 18 06/11/20 0747 Temp 37.2 ?C (99 ?F) 06/11/20 0747 SpO2 100 % 06/11/20 0747 Facility-Administered Medications as of 06/11/2020 Medication Dose Route Frequency - sodium chloride 0.9 % (flush) 2-10 mL (BD POSIFLUSH) 2-10 mL INTRAVENOUS q 12 H - lidocaine 4 % topical cream (LMX) TOPICAL PRN - ceFAZolin iv piggyback 2 g in D5W (iso-osmotic) 100 mL (ANCEF) 2 g INTRAVENOUS ONCE - [COMPLETED] lactated ringers infusion 5-30 mL/hr INTRAVENOUS ONCE - midazolam (PF) 2 mg injection (VERSED) 2 mg INTRAVENOUS ONCE No current outpatient medications on file as of 06/11/2020. I have interviewed and examined the patient. I have reviewed the medical record and/or the pre-anesthesia evaluation, pertinent labs, and test results. This contains updated information obtained within 48 hours of Surgery/Procedure. SIGNATURE: Kirill Lay MD PATIENT NAME: Kamryn Antunez DATE: June 11, 2020 TIME: 7:59 AM CSN: [id number] [facility] BRIEF OP NOTon 06-11-2020 BRIEF OP NOT HNO ID: [id number] Author: Marco Trinh MD Service: Orthopaedic Surgery Author Type: Resident Type: Brief Op Note Filed: 06/11/2020 11:27 AM Note Text: BRIEF OP NOTE LOG ID: [id number] Surgery/Procedure Date: 06/11/2020 Incision/Procedure Start Time: 9:39 AM Incision Close/Procedure End Time: 11:25 AM Surgeon(s)/Procedurali st(s) and Cardiologist(s): Surgeon(s) and Role: * Kavita Littlejohn - Primary * Marco Trinh MD - Resident - Assisting Procedure(s): L ACL reconstruction, partial lateral menisectomy, medial meniscus root repair Anesthesia: General Findings: ACL tear, medial and lateral meniscal tears Estimated Blood Loss: 40 mls Specimens: None Complications: None Pre-Op/Pre-Procedure Diagnosis: L knee ACL tear, medial and lateral meniscus tears Post-Op/Post-Procedure Diagnosis: Same as preop SIGNATURE: Marco Trinh MD PATIENT NAME: Kamryn Antunez DATE: June 11, 2020 TIME: 11:26 AM PAGER/CONTACT #: [phone] [facility] HISTORY PHYSICALon 0 HISTORY PHYSICAL HNO ID: [id number] Author: Kavita Littlejohn Service: Orthopaedic Surgery Author Type: Physician Type: HANDP Filed: 06/11/2020 7:18 AM Note Text: Patient preoperative HANDP reviewed. No additions or changes. Kavita Littlejohn MD [facility] NURSING PROGon 06-11-2020 NURSING PROG HNO ID: [id number] Author: Gin (Rn) GIDEON Torres Service: Nursing Author Type: Registered Nurse Type: Nursing Progress Note Filed: 06/11/2020 12:53 PM Note Text: Patient ready for discharge at this time but awaiting cryocuff. [facility] OPERATIVE NOon 06-11-2020 OPERATIVE NO HNO ID: [id number] Author: Kavita Littlejohn Service: Orthopaedic Surgery Author Type: Physician Type: Operative Report Filed: 07/08/2020 11:34 AM Note Text: OPERATIVE REPORT Kamryn Antunez [id number] DATE OF PROCEDURE: June 11, 2020 SURGEON: Kavita Littlejohn MD FIELD MARKETER: 1. MARCE Fuentes PA-C 2. Marco Trinh MD (Resident) 3. Paula Ramirez, Medical Student PREOPERATIVE DIAGNOSIS: 1. Left knee anterior cruciate ligament tear. 2. Left knee lateral meniscus tear POSTOPERATIVE DIAGNOSIS: 1. Left knee anterior cruciate ligament tear. 2. Left lateral meniscus tear 3. Left knee medial meniscus root tear OPERATION: 1. Left knee arthroscopically-catalino tamiko anterior cruciate ligament reconstruction with bone-patellar tendon-bone autograft 2. Diagnostic arthroscopy. 3. Examination under anesthesia. 4. Left knee medial meniscus root repair 5. Left knee partial lateral meniscectomy ANESTHESIA: General laryngeal mask airway with a femoral nerve block. COMPLICATION: None. SPECIMEN: None. DISPOSITION: To PACU in stable condition. COMPONENTS: 1. A Harvey [employer] Nephew 9 x 20 mm Soft-Silk Metal screw 2. A Harvey [employer] Nephew Ultrabutton 2. An Arthrex 4.75 PEEK swivel lock CLINICAL NOTE: The patient is an 15 year [id number] male, who sustained an injury to the left knee anterior cruciate ligament. This injury was a complete tear. Given the patients activity level and wish to remain active, we talked about operative intervention. We explained the risks, benefits, alternative procedures, expected outcomes, as well as length of convalescence. We talked about the different graft options available including autograft hamstring and bone-patellar tendon-bone and allograft options. Having understood that, informed consent has been signed. The patient's operative extremity was marked in the preoperative holding area. The patient received appropriate antibiotic prophylaxis as well as a femoral nerve block by the Anesthesia team without any complications. The patient taken to the operating room on June 11, 2020 in stable condition. DESCRIPTION OF OPERATION: Once in the operating room, brief time-out was taken by nursing team, Anesthesia, and surgical staff, confirming the patient's operative site was the left lower extremity. At this point in time, the patient was placed supine on the operative table. All bony prominences were well padded. IV sedation was given to the patient. Once asleep, a laryngeal mask airway was inserted and general inhalation anesthetics were administered for duration of the case. At this point in time, examination under anesthesia revealed the following findings: 1. Full, unrestricted range of motion of the knee. 2. No patellofemoral instability. 3. Grossly positive Susan exam without an endpoint. 4. Stable in varus and valgus stress test at 0 and 30 degrees. 5. Grade 1 pivot shift. 6. Negative posterior drawer. 7. Negative dial test at 90 and 30 degrees. Following our examination under anesthesia, the patient's left leg was placed into a Dyonics leg alaniz with a nonsterile tourniquet applied to the thigh and the patient's contralateral lower extremity was placed into an Sherman stirrup with the femoral nerve free from traction and peroneal nerve free from pressure. At this point in time, the patient's right lower extremity was then prepped and draped in usual sterile fashion. Eshmarch bandage was used to exanguinate the extremity and tourniquet was inflated to 250 mm Hg and remained inflated for the contreras portion of the procedure. An approximately 6 cm incision was made over the anterior aspect of the knee in the midline, carried down through the skin and subcutaneous tissues. At this point in time the central third of the patellar tendon was harvested with a 10 x 22 mm bone block on the patella and a 10 x 24 mm bone block on the tibia. The width of the patellar tendon graft was 10 mm. The graft was passed off to the back table for preparation and tensioning. Next, the patient's patellar tendon was then closed with simple sutures in the anterior half of the tendon to avoid shortening. At this point in time, inferomedial and inferolateral parapatellar tendon portals were established, as well as a superolateral outflow portal. Diagnostic arthroscopy was initiated undertaken revealing the following findings: 1. Intact patellofemoral articular cartilage. 2. Medial compartment articular cartilage: Intact 3. Medial meniscus: complete root tear 4. Intact posterior cruciate ligament. 5. Complete tear of the anterior cruciate ligament with an empty wall sign. 6. Lateral meniscus: Flap tear at the body 7. Lateral compartment articular cartilage intact We performed a partial lateral meniscectomy with basket punches and caprice. The meniscus was trimmed to a smooth and stable border. We removed approximately 30 percent of the lateral meniscus. To approach the medial meniscus root tear we trephinated the medial collateral ligament with a spinal needle to slightly open the compartment. Next, we drilled an osseous tunnel into the posterior medial meniscus footprint to facilitate repair. ACL guide was used. a 4.5 mm reamer was used to make the tunnel. Next, we passed two fiberlink sutures into the root tear. This was pulled down anatomically and fixed with a swivel lock obtaining EXCELLENT fixation. At this point in time, our attention was addressed to the intercondylar notch. The ACL was then debrided from the intercondylar notch and bony landmarks and soft tissue landmarks were evaluated on both the femur and tibia. Guide pins were placed into the center of the anteromedial bundle footprint on both the femur and the tibia for anatomic reconstruction and tunnels were drilled with 10 mm reamers, corresponding with snug fixation for the size of our graft. The transosseous length of the femoral tunnel was 49 mm. At this point in time, graft was passed in retrograde fashion and secured in the femoral tunnel with an Ultrabutton. At this point in time the knee was cycled while holding tension on the graft. There was no pistoning of the graft with full-arc motion. The knee was then brought out into 10 degrees of flexion and our interference screw was placed obtaining excellent fixation in the tibia. At this point in time, the patient's knee was taken through a full range of motion. The patient had excellent range of motion. There was a negative Susan exam. There was excellent tension throughout the graft, which was anatomic in appearance. There was no impingement on the roof of the intercondylar notch or against the posterior cruciate ligament. There was no hardware in the intra-articular space. At this point in time, final images were taken. All particulate matter was evacuated from the knee. Meticulous hemostasis was obtained. Next, we grafted the patellar and tibial donor sites with cancellous bone from our tunnel reaming and preparation of our bone blocks. The patient's wounds were closed in layers. The patient was placed into a sterile compressive bandage locked out in full extension. It should be noted I was present for and performed all contreras portions of the procedure. The resident physician was present for and assisted with prepping, draping and wound closure. POSTOPERATIVE PLAN: POSTOPERATIVE PLAN: Becauese of the medial meniscus root repair, THE PATIENT NEEDS TO BE MEASURED FOR AN ACL FUNCTIONAL BRACE WITH MEDIAL SUPERVISOR DIALS FUNCTION SOON POSSIBLE AFTER SURGERY so that the brace can be placed by the time the patient starts weight bearing as tolerated at 6 weeks. The patient will follow our standard ACL with bone-patellar tendon-bone rehab protocol with meniscus repair. The patient will be touch-down weight bearing for 6 weeks post surgery. In terms of knee range of motion she will be allowed to bend 90 degrees for the first 4 weeks. After 4 weeks flexion can progress as tolerated. At 6 weeks, the patient should go into the MEDIAL surface grinding machine hand brace and begin weight bearing as tolerated (if quadriceps function allows and then will continue with the standard ACL reconstruction protocol. Rehab should focus on regaining full extension in the early weeks. Kamryn Antunez will be seen approximately 1 week post surgery by the RN or SARAH for wound check and dressing changes. OPERATIVE TIME: See Epic brief operative note. Kavita Littlejohn MD [facility] HOSPon 05-23-2020 HOSP Patient:Chauncey Antunezzenaida Conley MRN: Height:5' 11[patient/guardian reported[(1.803 m) Weight:210 lb (95.255 kg) Outpatient Medications as of 06/11/20: oxyCODONE-acetaminophe n (PERCOCET) 5-325 mg tablet naproxen (NAPROSYN) 500 mg tablet Admission/Clinic Administered Medications as of 06/11/20: sodium chloride 0.9 % (flush) 2-10 mL (BD POSIFLUSH) lidocaine 4 % topical cream (LMX) ceFAZolin iv piggyback 2 g in D5W (iso-osmotic) 100 mL (ANCEF) midazolam (PF) 2 mg injection (VERSED) Problem List: Left anterior cruciate ligament tear [S83.512A] Allergies: No Known Allergies Date Verified:06/11/20 Lab Values No results within the last 30 days for the following basenames: K,HCT Progress Notes (ORTHOPAEDIC AND RHEUMATOLOGIC INST): Alessia Pisano Adm 06/10/2020 1:58 PM Signed Can you check with Mom to see if you can send medication after surgery to [facility] pharmacy... she can pick while waiting for surgery completion. Tay Davies PA-C 06/10/2020 3:14 PM Signed Spoke with patients mother, advised prescription will be waiting at [facility] pharmacy tomorrow to shredder picker Progress Notes ([facility]): Tay Davies PA-C 05/23/2020 9:59 AM Signed Called patients mother to schedule surgery, no answer, message left advising first available would be 06/11. Next would be 06/16, 06/18. Alessia Pisano Adm 05/23/2020 1:33 PM Signed Mom called back, thye would like to take the 06/11 surgery date... She may have to do covid testing locally-- she will call and let us know. PT is going to also be done locally so please let her know when to schedule appt. Send pre-op instructions to email in Ctrip. Tay Davies PA-C 05/23/2020 1:55 PM Signed Addended by: TAY DAVIES PA-C on: 05/23/2020 01:55 PM Modules accepted: Orders Normal [facility] Vital Signs Date Time Vital Sign Value Performing Clinician Steven srinivasan 01-13-2022 19:43-0400 Body height 181.61 cm [facility] Work Phone: 01-13-2022 19:43-0400 Body mass index (BMI) [Percentile] Per age and sex 94.6 % [facility] Work Phone: 01-13-2022 19:43-0400 Body mass index (BMI) [Ratio] 27.8 kg/m2 [facility] Work Phone: 01-13-2022 19:43-0400 Body temperature 97.5 [degF] [facility] Work Phone: 01-13-2022 19:43-0400 Body weight 91.62 kg [facility] Work Phone: 01-13-2022 19:43-0400 Diastolic blood pressure 76 mm[Hg] [facility] Work Phone: 01-13-2022 19:43-0400 Heart rate 56 /min [facility] Work Phone: 01-13-2022 19:43-0400 Respiratory rate 18 /min [facility] Work Phone: 01-13-2022 19:43-0400 SaO2% (BldA) [Mass fraction] 97 % [facility] Work Phone: 01-13-2022 19:43-0400 Systolic blood pressure 128 mm[Hg] [facility] Work Phone: Encounters Encounter Date Encounter Type Care Provider Facility Start: 03-23-2025 ambulatory [facility] Facility:[facility] Start: 03-08-2025 End: 03-08-2025 ambulatory SELF REFERRED [facility] Start: 01-23-2025 End: 01-23-2025 ambulatory KENNETH [facility] Start: 01-01-2023 End: 01-01-2023 ambulatory [facility] Work Phone: Start: 01-01-2023 End: 01-01-2023 Patient encounter procedure [facility], [facility] Work Phone: Start: 07-26-2022 Registered [facility] Start: 07-15-2022 Registered [facility] Start: 07-15-2022 End: 07-15-2022 ambulatory [facility] Work Phone: Start: 07-15-2022 End: 07-15-2022 Patient encounter procedure [facility] - [facility] Start: 07-07-2022 End: 07-07-2022 ambulatory [facility] Work Phone: Start: 07-07-2022 End: 07-07-2022 Patient encounter procedure [facility], [facility] Start: 04-03-2022 End: 04-03-2022 Patient encounter procedure [facility] Start: 02-19-2022 End: 02-19-2022 Discharged [facility] Start: 01-20-2022 Registered Rec[facility]ring [facility] Start: 01-14-2022 End: 01-14-2022 Patient encounter procedure [facility], [facility] Start: 06-19-2020 End: 06-19-2020 Subsequent hospital visit by physician Max [facility] Pamela Work Phone: Radiology Comment on above: Rupture of anterior cruciate ligament of left knee, subsequent encounter [S83.512D] Procedures Date Procedure Procedure Detail Performing Clinician Start: 01-01-2023 Radiologic examination of knee Start: 07-15-2022 MRI of joint of lower extremity Start: 07-07-2022 Radiologic examination of knee Start: 01-14-2022 Radiography of ankle Start: 06-19-2020 Radiologic examination knee 1/2 views Tay Davies PA-C Work Phone: Start: 06-19-2020 History of operative procedure on knee S/P right knee ACL reconstruction with BTB autograft, medial meniscus root repair, partial lateral meniscectomy Xr Pamela Work Phone: Plan of Treatment Date Care Activity Detail Author Start: 04-13-2027 Urine microalbumin profile DTa P,Tdap,Td Vaccine (7 - Td or Tdap) [facility] Start: 03-18-2024 Covid-19 Vaccine ( season) Covid-19 Vaccine () [facility] Start: 03-18-2024 Influenza vaccination Influenza Vacc ine (#1) [facility] Start: 2023 Anxiety Screening Anxiety Screening [facility] Start: 2023 Depression Screening Depression Scre smith [facility] Start: 2023 Hepatitis C screening Hepatitis C Sc cody [facility] Start: 2023 HIV screening HIV Screening [facility] Start: 2019 Peds To Adult Transi tion Annual Assessment Peds To Adult Transition Annual Assessment [facility] Start: 2017 Peds To Adult Transi tion Initial Discussion Peds To Adult Transition Initial Discussion [facility] Immunizations Immunization Date Immunization Notes Care Provider Fa joselin 03-31-2022 influenza virus vaccine, unspecified formulation Xr Pamela Work Phone: [facility] Payers Date Payer Category Payer Self-pay [id number] [phone] [id number] 2025 Private Health Insurance [id number] 2019 Unknown MMO MMO [employer] PPO [id number] 2019-2019 [address] [place] [address] PPO [id number] 2005 Unknown [id number] 2005 Unknown [id number] Unknown [id number] Unknown [facility] [id number] Unknown [id number] Social History Date Type Detail Facility Start: 01-13-2022 End: 01-13-2022 Tobacco smoking status NHIS Unknown if ever smoked [facility] Start: 04-24-2020 None [facility] Start: 04-24-2020 With Family [facility] Start: 2005 Sex Assigned At Male [facility] Start: 05-30-2020 Tobacco smoking status NHIS Never smoked tobacco [facility] Start: 05-30-2020 Tobacco use and exposure Smokeless tobacco non-user [facility] Start: 05-30-2020 Alcoholic beverage intake Lifetime non-drinker (finding) [facility] Start: 05-30-2020 History of Social function [employer] [facility] Start: 05-30-2020 Alcohol Use Disorder Identification Test - Consumption [AUDIT-C] [facility] How often to you hav e a drink containing alcohol? Never [facility] Average Number of Drinks Not on file [facility] Start: 05-28-2020 Gender identity Identifies as male gender (finding) [facility] Start: 05-28-2020 Sexual orientation Heterosexual (finding) [facility] Start: 05-12-2020 End: 06-11-2020 Exposure to SARS-CoV-2 (event) Not sure [facility] Medical Equipment Procedure Code Equipment Code Equipment Origin al Text Equipment Identifier Dates Emerson Swivelock 4.75mm Peek 19.1mm Suture Closed Eyelet Vent Sterile - [id number] Start: 06-11-2020 Screw Softsilk 9 mm 2mm Titanium 20mm Interference Cannulated Corkscrew Tip - [id number] Start: 06-11-2020 Progress note 01-16-2021 Note Date & Type Note Facility 01-16-2021 Note HNO ID: [id number] Author: Kavita Littlejohn MD Service: ? Author Type: Physician Type: Progress Notes Filed: 01/16/2021 10:41 AM Note Text: DATE OF PROCEDURE:?June 11, 2020 OPERATION: 1.?Left?knee arthroscopically-assisted anterior cruciate ligament reconstruction with bone-patellar tendon-bone autograft 2. Diagnostic arthroscopy. 3. Examination under anesthesia. 4.??Left?knee medial meniscus root repair 5.??Left?knee?partial lateral meniscectomy REF: [employer] Interval history: Kamryn Antunez returns today status post left knee surgery. Chief complaint is left knee resolved pain. Doing great . Review of Systems: CV: No chest pain Pulm: No short of breath HEENT: No head ache General: no fevers, chills, nausea/vomiting, malaise Physical Examination: This is a well appearing, well nourished patient in no acute distress. Head is normocephalic and atraumatic. White sclera and pink conjunctiva. Mucous membranes are moist. Breathes easily and has normal chest wall excursion. Affect is normal. Left knee: negative susan's Range of motion: Flexion is ful, extension is full . Effusion: none +. Incisions: healed . No infection. Imaging: none Impression: Kamryn Antunez is a 15 year old male, who is 7 months status post left knee ACLR, MM root repair and partial lateral meniscectomy. Doing great . Plan: 1. return to clinic as necessary 2. Cleared for all activities Kavita Littlejohn MD [facility] Progress note 12-12-2020 Note Date & Type Note Facility 12-12-2020 Note HNO ID: [id number] Author: Kavita Littlejohn MD Service: ? Author Type: Physician Type: Progress Notes Filed: 12/14/2020 4:52 PM Note Text: Attending Attestation: I have seen and evaluated this patient. I agree with the impression and plan of care as outlined in the Resident's note. Single leg hop is not fantastic. A bit stiff legged. Kavita Littlejohn MD [facility] Orthopaedic Surgery and Sports Medicine [facility] Sports Medicine explosive man [facility] of Medicine Warehouse Operations Manager, Orthopaedic Sports Medicine Fellowship [facility] Orthopaedic and Rheumatologic [facility] Progress note 12-12-2020 Note Date & Type Note Facility 12-12-2020 Note HNO ID: [id number] Author: Edgar Tipton MD Service: ? Author Type: Resident Type: Progress Notes Filed: 12/14/2020 4:52 PM Note Text: DATE OF PROCEDURE:?June 11, 2020 OPERATION: 1.?Left?knee arthroscopically-assisted anterior cruciate ligament reconstruction with bone-patellar tendon-bone autograft 2. Diagnostic arthroscopy. 3. Examination under anesthesia. 4.??Left?knee medial meniscus root repair 5.??Left?knee?partial lateral meniscectomy REF: [employer] Doing very well. No significant pain. He has been working through some jogging. Physical Examination: This is a well appearing, well nourished male in no acute distress. His head is normocephalic and atraumatic. He has white sclera and pink conjunctiva. Mucous membranes are moist. He breathes easily and has normal chest wall excursion. He has a normal affect. Negative Susan's and pivot shift on exam. Minor pain with palpation over the patellar tendon. He has full range of motion. Good quadriceps contractility. Single leg hop on the left demonstrates he is still a little stiff legged. Currently just past 6 months status post left knee ACL reconstruction medial meniscus root repair and partial lateral meniscectomy. He is ok to participate in non-game sports activities. RTC in 1 month. ALLERGIES No Known Allergies No past medical history on file. PAST SURGICAL HISTORY Procedure Laterality Date - ADENOIDECTOMY HX - EAR TUBES HX x 2 Current Outpatient Medications on File Prior to Visit Medication Sig - naproxen (NAPROSYN) 500 mg tablet Take 1 tablet by mouth twice daily as needed (for pain). Take with food (Patient not taking: Reported on 10/31/2020 ) No current facility-administered medications on file prior to visit. FAMILY HISTORY Problem Relation Age of Onset - Asthma Mother - Diabetes Father - Hypertension Father - Asthma Brother Review of Symptoms: Cardiac: No chest pain Pulmonary: No trouble breathing Constitutional: No fevers, chills GI: No current GI upset Musculoskeletal: As above Edgar MD Kavita Tipton MD [facility] Orthopaedic Surgery and Sports Medicine [facility] Sports Medicine explosive man [facility] Medicine Warehouse Operations Manager, Orthopaedic Sports Medicine Fellowship [facility] Orthopaedic and Rheumatologic [facility] Progress note 10-31-2020 Note Date & Type Note Facility 10-31-2020 Note HNO ID: [id number] Author: Kavita Littlejohn Service: ? Author Type: Physician Type: Progress Notes Filed: 10/31/2020 8:53 AM Note Text: DATE OF PROCEDURE:?June 11, 2020 OPERATION: 1.?Left?knee arthroscopically-assisted anterior cruciate ligament reconstruction with bone-patellar tendon-bone autograft 2. Diagnostic arthroscopy. 3. Examination under anesthesia. 4.??Left?knee medial meniscus root repair 5.??Left?knee?partial lateral meniscectomy REF: [employer] Doing very well. No significant pain. He has been working through some jogging. Physical Examination: This is a well appearing, well nourished male in no acute distress. His head is normocephalic and atraumatic. He has white sclera and pink conjunctiva. Mucous membranes are moist. He breathes easily and has normal chest wall excursion. He has a normal affect. Negative Susan's and pivot shift on exam. Minor pain with palpation over the patellar tendon. He has full range of motion. Good quadriceps contractility. Currently approaching 5 months status post left knee ACL reconstruction medial meniscus root repair and partial lateral meniscectomy. Doing well. We talked to him about progressing with his return to play program. He is okay to start doing some flat ground throwing and progress that to long toss and level ground pitching. ALLERGIES No Known Allergies No past medical history on file. PAST SURGICAL HISTORY Procedure Laterality Date - ADENOIDECTOMY HX - EAR TUBES HX x 2 Current Outpatient Medications on File Prior to Visit Medication Sig - naproxen (NAPROSYN) 500 mg tablet Take 1 tablet by mouth twice daily as needed (for pain). Take with food (Patient not taking: Reported on 10/31/2020 ) No current facility-administered medications on file prior to visit. FAMILY HISTORY Problem Relation Age of Onset - Asthma Mother - Diabetes Father - Hypertension Father - Asthma Brother Review of Symptoms: Cardiac: No chest pain Pulmonary: No trouble breathing Constitutional: No fevers, chills GI: No current GI upset Musculoskeletal: As above Kavita Littlejohn MD [facility] Orthopaedic Surgery and Sports Medicine [facility] Sports Medicine explosive man [facility] Warehouse Operations Manager, Orthopaedic Sports Medicine Fellowship [facility] Orthopaedic and Rheumatologic [place] [facility] Progress note 09-26-2020 Note Date & Type Note Facility 09-26-2020 Note HNO ID: [id number] Author: Kavita Littlejohn Service: ? Author Type: Physician Type: Progress Notes Filed: 09/26/2020 8:41 AM Note Text: DATE OF PROCEDURE:?June 11, 2020 OPERATION: 1.?Left?knee arthroscopically-assisted anterior cruciate ligament reconstruction with bone-patellar tendon-bone autograft 2. Diagnostic arthroscopy. 3. Examination under anesthesia. 4.??Left?knee medial meniscus root repair 5.??Left?knee?partial lateral meniscectomy REF: [employer] Interval history: Kamryn Antunez returns today status post left knee surgery. Chief complaint is left knee resolved pain.. Doing very well. Review of Systems: CV: No chest pain Pulm: No short of breath HEENT: No head ache General: no fevers, chills, nausea/vomiting, malaise Physical Examination: This is a well appearing, well nourished patient in no acute distress. Head is normocephalic and atraumatic. White sclera and pink conjunctiva. Mucous membranes are moist. Breathes easily and has normal chest wall excursion. Affect is normal. Left knee: Excursion on Susan's but a negative endpoint. Range of motion: Flexion is symmetric, extension is symmetric. Effusion: None +. Incisions: Healed. No infection. Imaging: None Impression: Kamryn Antunez is a 15 year old male, who is 3-1/2 months status post left knee ACL reconstruction, medial meniscus root repair and partial lateral meniscectomy. Doing well. Plan: 1. Continue with physical therapy 2. Okay to discontinue the surface grinding machine hand brace for everyday use 3. Return to clinic in 6 weeks Kavita Littlejohn MD [facility] Orthopaedic Surgery and Sports Medicine [facility] Sports Medicine explosive man [facility] Medicine Warehouse Operations Manager, Orthopaedic Sports Medicine Fellowship [facility] Orthopaedic and Rheumatologic [place] [facility] Progress note 08-28-2020 Note Date & Type Note Facility 08-28-2020 Note HNO ID: [id number] Author: Kavita Littlejohn Service: ? Author Type: Physician Type: Progress Notes Filed: 08/28/2020 8:51 AM Note Text: DATE OF PROCEDURE:?June 11, 2020 OPERATION: 1.?Left?knee arthroscopically-assisted anterior cruciate ligament reconstruction with bone-patellar tendon-bone autograft 2. Diagnostic arthroscopy. 3. Examination under anesthesia. 4.??Left?knee medial meniscus root repair 5.??Left?knee?partial lateral meniscectomy REF: [employer] Interval history: Kamryn Antunez returns today status post left knee surgery. Chief complaint is resolved knee pain.. Doing great. Review of Systems: CV: No chest pain Pulm: No short of breath HEENT: No head ache General: no fevers, chills, nausea/vomiting, malaise Physical Examination: This is a well appearing, well nourished patient in no acute distress. Head is normocephalic and atraumatic. White sclera and pink conjunctiva. Mucous membranes are moist. Breathes easily and has normal chest wall excursion. Affect is normal. knee: solid endpoint on Susan's Range of motion: Flexion is full, extension is full . Effusion: none +. Incisions: healed . No infection. Imaging: none Impression: Kamryn Antunez is a 15 year old male, who is 3 months status post ACLR+ MM root repair + PLM. He is doing well, progresses. At this point, he is cleared to transition to Phase II on rehabilitation. Plan: 1. PT -as per miller protocol he is not ready for jogging or plyometric activities. We should hold off on that until he is at two months post surgery 2. return to clinic in 1 month By signing my name below, I, Li Day Ms, attest that this documentation has been prepared under the direction and in the presence of Dr. Littlejohn Electronically signed, Li Day Ms, Medical Student August 28, 2020 8:34 AM [facility] History of Present illness Narrative 06-19-2020 Cici Jennings (Rt), Tech - 06/19/2020 1:45 PM EST Note Date & Type Note Facility 06-19-2020 History of Presen t illness Narrative Radiology Service Progress Note PATIENT NAME: Kamryn Antunez DATE OF SERVICE: June 19, 2020 TIME: 1:53 PM PATIENT IDENTITY VERIFICATION COMPLETED USING TWO (2) IDENTIFIERS: Name and Date of confirmed by patient verbally and Name and Date of confirmed by identification band. FALL SCREENING: Has the patient had 2 falls in the last year or 1 fall with injury or currently using an Ambulatory Assistive Device (Walker, Cane, Wheelchair, Crutches, etc.)? Yes, Patient High Risk for Falls What interventions were put in place to prevent falls during this visit? Offered Assistance with Transfers/Clothing and Increased Observations by Caregivers PATIENT GENDER DATA: Male PATIENT RELEVANT IMPLANT DATA REVIEWED: Not Applicable RADIOLOGY DEPARTMENT: General X-ray: Exam(s) Completed: Lower Extremity X-Ray(s): Knee, AP / LAT Left: PERIPHERAL IV DATA: Not applicable SIGNED BY: RT Destiny June 19, 2020 1:53 PM FOLLOW UP documented in this encounter [facility] Evaluation note Note Date & Type Note Facility Evaluation note Diagnosis Onset Date Strain of left ankle and foot acute Swelling of left foot acute [facility] Work Phone: Evaluation note Note Date & Type Note Facility Evaluation note No assessment information availa ble [facility] Work Phone: Evaluation note Note Date & Type Note Facility Evaluation note Diagnosis Rupture of anterior cruciate ligament of left knee, subsequent encounter documented in this encounter [facility] Summary Purpose Family History No Family History Records FoundNo Family History Records FoundNo Family History Records FoundNo Family History Records Found Advance Directives No Advanced Directives Records FoundNo Advanced Directives Records FoundNo Advanced Directives Records FoundNo Advanced Directives Records Found Procedure Findings Note HNO ID: [id number] Author: Keke Ruffin Service: ? Author Type: Nurse Wallpaperer Type: Anesthesia Procedure Notes Filed: 06/11/2020 9:38 AM Note Text: ANESTHESIOLOGY PROCEDURE NOTE Airway General Information Patient location during procedure: OR Timeout Performed Pre-procedure: timeout performed Consent Obtained: Yes Patient identity confirmed: arm band, patient and family Staffing CANE PILER: Karine Ruffin Indications and Patient Condition Preoxygenated: yes Patient position: sniffing Manual In-Line Stabilization: No Difficult Mask: No Indications for airway management: anesthesia and airway protection anesthesia circuit Method: asleep Cricoid Pressure: No Final Airway Details Final airway type: supraglottic airway Number of attempts at approach: 1 Final Supraglottic Airway: IGEL Seal Adequate: yes Airway not difficult SIGNATURE: Karine Ruffin CRNA PATIENT NAME: Kamryn Antunez DATE: June 11, 2020 TIME: 9:37 AM CSN: [id number] Chief Complaint and Reason for Visit Chief Complaint (L) Ankle pain HYPER EXTENDED KNEE L ANKLE SPRAIN,RX HERE Reason for Visit Strain of left ankle and foot Swelling of left foot Chief Complaint RT KNEE LCL VS POSS MENISCAL INJURY R KNEE INJURY LCL VS MENISCUS. MOM TO FAX RX Additional Source Comments (unrecognized sect ion and content) No Status Records FoundNo Status Records FoundNo Status Records FoundNo Status Records Found INFORMATION SOURCE (unrecogn ized section and content) DATE CREATED AUTHOR 07/09/2020 [facility] DATE CREATED AUTHOR AUTHOR'S ORGANIZ ATION 08/09/2021 [facility] DATE CREATED AUTHOR AUTHOR'S ORGANIZ ATION 03/10/2025 [facility] DATE CREATED AUTHOR AUTHOR'S ORGANIZ ATION 03/16/2025 [facility] Goals (unrecognized section and content) Goals may be documented in a n alternate sectionGoals may be documented in an alternate sectionGoals may be documented in an alternate sectionGoals may be documented in an alternate sectionGoals may be documented in an alternate section Care Teams (unrecognized sec tion and content) Team Status: Active Member Role Status Dates Dr. Kenneth Corley MD Primary Care Provider Active Team Status: Inactive Member Role Status Dates Dr. Kenneth Corley MD Primary Care Provider Active KALEY LEMON Attending Provider, Referring Provider Active House Rn Relationship Specialty Start Date End Date Kenneth Corley MD [address] [place] [address] PCP - General Pediatrics 05/29/20 Source Comments (unrecognize d section and content) In the event this informatio n is protected by the Federal Confidentiality of Alcohol and Drug Abuse Patient Records regulations: The Federal rules restrict any use of the information to criminally investigate or prosecute any alcohol or drug abuse patient.[facility] FOR RECORDS PERTAINING TO PATIENTS WHO ARE OR HAVE BEEN ENROLLED IN A CHEMICAL DEPENDENCY/SUBSTANCEABUSE PROGRAM, SOME INFORMATION MAY BE OMITTED. This clinical summary was aggregated from multiple sources. Caution should be exercised in using it in the provision of clinical care. This summary normalizes information from multiple sources, and as a consequence, information in this document may materially change the coding, format and clinical context of patient data. In addition, data may be omitted in some cases. CLINICAL DECISIONS SHOULD BE BASED ON THE PRIMARY CLINICAL RECORDS. [facility] [employer] [facility]. provides no warranty or guarantee of the accuracy or completeness of information in this document.
== END | disposition home or self-care (01) ==
LOC: US 10:21
PROVIDERS: PCP Pediatrics
DX: R74.8 Abnormal levels of other serum enzymes (principal); R17 Unspecified jaundice
CPT/HCPCS: 76700